=== PATIENT | male | born 1985 | race Hispanic/Latino ===

== ENCOUNTER 2017-08-28 14:43 | Inpatient (IN) | payer BC ==
[2017-08-28 16:12] LABS: #Basophils 0.1 thou/uL (0.0-0.2); #Eosinphils 0.1 thou/uL (0.0-0.7); #Lymphocytes 1.6 thou/uL (1.20-3.40); #Monocytes 0.5 thou/uL (0.11-0.59); #Neutrophils 7.8 thou/uL (1.40-6.50); %Basophils 0.5 % (0.0-1.0); %Eosinophils 0.6 % (0.0-10.0); %Lymphocytes 16.4 % (21.0-51.0); %Monocytes 4.5 % (0.0-10.0); Mean Platelet Volume 8.2 fL (7.4-10.4); Red Blood Cell (RBC) Count 4.94 mill/uL (4.70-6.10)
[2017-08-28 16:36] LABS: Troponin I Less than 0.010 ng/mL (< 0.028)
[2017-08-28 16:42] LABS: ALT (SGPT) 31 U/L (8-55); AST (SGOT) 24 U/L (5-34); Alkaline Phosphatase 77 U/L (40-150); Anion Gap 12 mmol/L (10-20); BUN (Urea Nitrogen) 16 mg/dL (8.9-20.6); Bilirubin, Total 1.9 mg/dL (0.2-1.2); Calc. Creatinine Clearance 0 mL/min (70-130); Calcium 9.4 mg/dL (7.8-10.44); Carbon Dioxide 26 mmol/L (22-29); Chloride 104 mmol/L (98-107); Estimated GFR-MDRD Greater than 90; Globulin 3.5 g/dL (2.4-3.5)
--- NOTE | 2017-08-28 16:48 | CT ---
NONCONTRAST CT HEAD 08/28/17 HISTORY: Near syncope. Mental status change. headache. 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 However, there is also a low dens ity area within the right anterior frontal region adjacent to the region of the calcification of whic h the exact etiology is uncertain. However, this low density area is abnormal in a patient of this ag e. In addition, there is questionable low density area in the left temporal lobe, but this may be rel ated to artifact secondary to the temporal bone as opposed to actual edema in this region. However, g iven the low density area in the right anterior frontal lobe, further evaluation with MRI is recommen ded. No intraparenchymal or extra-axial hemorrhage is seen. there is no mass effect or midline shift. Ventricular system is normal in size, shape and position. Calvarial structures are intact. The visua lized paranasal sinuses and mastoid air cells are clear. IMPRESSION: 1. 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 While these areas could be related to chronic findings and related to prior insult, edema related to more acute insult such as active neurocisticercosis is apossibility. MRI of brain wi th and without IV contrast is recommended for further evaluation. 2. Above findings discussed with Dr. Gillian Sanches in the Emergency Department on 08/28/17 at 1556 hours. POS: [facility]
--- NOTE | 2017-08-28 17:30 | MRI ---
MRI OF BRAIN PERFORMED WITH AND WITHOUT CONTRAST ENHANCEMENT: 08/28/17 HISTORY: Syncope. Mental status change. Headache. Abnormalities noted on CT which were suggestive of healed cisticercosis but there is a questionable l ow attenuation areas associated with calcification in the right frontal lobe region and a questionabl e area within the left temporal. Ventricular and cisternal system is within normal limits. The area of question in the left temporal l obe shows no abnormality. There is an abnormality associated with the right frontal lobe. This shows a small subcentimeter ring enhancing lesion with surrounding edema. No additional lesions are identif ied. The small calcification seen on the CT in the right posterior temporal lobe region does not show any abnormal signal change. On the diffusion weighted sequence, there is no signs that would suggest any infarct. No mass effect or any additional findings. IMPRESSION: Subcentimeter ring enhancing mass in the right frontal lobe. It is probably intraparenchymal, althoug h could be within the sulci in this region. There is definite surrounding edema associated with this. Given the presence of calcifications seen on CT, this still could represent neurocisticercosis altho ugh the features are not entirely typical and a neoplastic process particularly a solitary metastatic lesion or entity such as lymphoma or some type of primary brain tumor could not be definitely exclud ed on the bases of this exam. This will require followup and I would suggest neurosurgical consultati on. Findings discussed with Dr. Sanches. POS: [facility]
--- NOTE | 2017-08-28 17:31 | RAD ---
AP VIEW OF THE CHEST 08/28/17 INDICATION: Near syncope. COMPARISON: None. FINDINGS: The lungs are clear. The cardiomediastinal silhouette is normal. No acute osseous abnormality is evid ent. IMPRESSION: No acute cardiopulmonary abnormality. POS: [facility]
[2017-08-28] MEDS ORDERED: Acetaminophen 325 MG TAB PO PRN ×2 (18:26→19:31)
[2017-08-28] MEDS ORDERED: Acetaminophen 650 MG Suppository PR PRN (18:26)
[2017-08-28] MEDS ORDERED: Ondansetron HCl/PF 4 MG/2 ML Vial IVP PRN (19:31)
[2017-08-28] MEDS ORDERED: Ondansetron ODT 4 MG TAB SL PRN (19:31)
--- NOTE | 2017-08-28 20:26 | HP ---
PRIMARY CARE PROVIDER: None. CHIEF COMPLAINT: Shakiness. HISTORY OF PRESENT ILLNESS: Mr. Adonis Thomsa is a pleasant 32-year-old gentleman who was seen at [facility] on 08/28/2017. He reportedly told the emergency room staff that he had some confusion and shakiness. He also report ed told them that he had headache. However, when I spoke to him, he reports that he had two episodes of shakiness when he was at work. He reports that there were brief. He denies any headache. He de nies having any fevers. He denies any chest pain or shortness of breath. He denies any loss of cons ciousness. REVIEW OF SYSTEMS: The following complete review of systems was negative, unless otherwise mentioned in the HPI or below: Constitutional: Weight loss or gain, sense of well-being, ability to conduct usual activities, exerc ise tolerance. Skin/Breast: Rash, itching, changes in hair growth or loss, nail changes, breast lumps, tenderness, swelling, nipple discharge. Eyes: Vision, double vision, tearing, blind spots, pain. ENT/Mouth: Headaches (location, time of onset, duration, precipitating factors), vertigo, lightheade dness, injury. Vision, double vision, tearing, blind spots, pain, nose bleeding, colds, obstruction, discharge, dental difficulties, gingival bleeding, dentures, neck stiffness, pain, tenderness, masses in thyroid or other areas. Cardiovascular: Precordial pain, substernal distress, palpitations, syncope, dyspnea on exertion, or thopnea, nocturnal paroxysmal dyspnea, edema, cyanosis, hypertension, heart murmurs, varicosities, ph lebitis, claudication. Respiratory: Pain, shortness of breath, wheezing, stridor, cough, hemoptysis, fever or night sweats. Gastrointestinal: Poor appetite, dysphagia, indigestion, abdominal pain, heartburn, eructation, naus ea, vomiting, hematemesis, jaundice, constipation, or diarrhea, abnormal stools (kush-colored, tarry, bloody, greasy, foul-smelling), flatulence, hemorrhoids, recent changes in bowel habits. Genitourinary: Urgency, frequency, dysuria, nocturia, hematuria, polyuria, oliguria, unusual (or kevin nge in) color of urine, stones, hesitancy, change in size of stream, dribbling, acute retention or in continence, libido, potency. Musculoskeletal: Pain, swelling, redness or heat of muscles or joints, limitation, of motion, muscul ar weakness, atrophy, cramps. Neurologic/Psychiatric: Convulsions, paralyzes, tremor, incoordination, paresthesias, difficulties w ith memory of speech, sensory or motor disturbances, or muscular coordination (ataxia, tremor), emoti onal problems, anxiety, depression, previous psychiatric care, unusual perceptions, hallucinations. Allergy/Immunologic: Skin rash, anemia, bleeding tendency, polydipsia, polyuria, intolerance to heat or cold. PAST MEDICAL HISTORY: None. PAST SURGICAL HISTORY: None. SOCIAL HISTORY: Patient denies tobacco use or recreational drug use. He drinks 1 beer a day. FAMILY HISTORY: No family history of malignancy. ALLERGIES: No known drug allergies. CURRENT MEDICATIONS: None. PHYSICAL EXAMINATION: GENERAL: Mr. Adonis Thomas is awake and alert, not in acute distress. VITAL SIGNS: Blood pressure is 122/89, pulse is 97. He is breathing at rate of 18 and saturating 97 % on room air. He is afebrile. EYES: No scleral icterus, no conjunctival pallor. He had pterygium in his left eye. ENT: Moist mucosal membranes, no oropharyngeal erythema or exudates. NECK: Supple, nontender, normal range of movement, trachea is midline. RESPIRATORY: Accessory muscles of breathing are not active. Chest wall movements are symmetric bila terally. LUNGS: Clear to auscultation without wheeze, rhonchi, or crepitations. CARDIOVASCULAR: S1 and S2 are heard, regular. Peripheral pulses palpable. No carotid bruit, no per icardial rub. ABDOMEN: Soft, nontender, bowel sounds are heard, no hepatomegaly, no splenomegaly. NEUROLOGIC: Cranial nerves II-XII intact, deep tendon reflexes 2+, power is 5/5 in all 4 extremities . No focal motor or sensory deficits. Cerebellar Exam: Unremarkable. SKIN: No rashes or subcutaneous nodules. MUSCULOSKELETAL: Power is 5/5 in all 4 extremities. Normal range of movement at all major extremity joints. LYMPHATIC: No cervical lymphadenopathy. PSYCHIATRIC: Normal mood and normal affect, patient is oriented to person, place, and time. DATABASE: Mr. Adonis Thomas labs and investigations were reviewed. He had chest x-ray, which did no t show any pulmonary infiltrates. He also had a CT scan of the brain without contrast, which suggest ed findings likely related to heal cysticercosis in the right cerebral hemisphere with another low-de nsity area in the right anterior frontal lobe with questionable low density in the left temporal lobe . He went on to have an MRI of the brain, which showed subcentimeter ring enhancing mass in the righ t frontal lobe, with definite surrounding edema. The radiologist feels that this could represent jovan rocysticercosis, although the features are not entirely atypical and he could not definitely exclude a neoplastic process particularly a solitary metastatic lesion or entities such as lymphoma. Laborat ory investigation showed unremarkable CBC, elevated total bilirubin of 1.9, but otherwise unremarkabl e comprehensive metabolic profile ASSESSMENT AND PLAN: Mr. Adonis Thomas is a pleasant 32-year-old gentleman who was seen at [facility] on 08/28/2017. His problem list includes: 1. Brain lesions: Suspicious for neurocysticercosis, although the radiologist could not rule out ot her entities. Neurosurgery service has already been consulted. The emergency room physician also sp sterling to Infectious Disease service, who has advised holding off on steroids and anthelmintic agents. We will request cysticercosis serology for now. 2. Seizure risk: The patient is at increased risk for seizures. We will start him on Keppra and st art seizure precautions. 3. Elevated bilirubin: Etiology unclear, isolated hyperbilirubinemia. We will repeat liver functio n test. LEVEL OF RISK: Moderate. LEVEL OF COMPLEXITY: Moderate.
[2017-08-28 21:13] VITALS: BMI 28.0
--- NOTE | 2017-08-28 21:56 | CON ---
This is Mary Mckinney PA-C, with Neurosurgery Service. DATE OF CONSULTATION: 08/28/2017 HISTORY OF PRESENT ILLNESS: The patient is a 32-year-old [place] male who presented to the Em ergency Department per EMS after multiple episodes of headaches where he had abnormal speech patterns . The patient reports he was repeating himself over and over. He was brought to the Emergency Depar tment by his employer for further evaluation. CT head was done, which was notable for some edema in the right frontal lobe. Therefore, patient was evaluated further with brain MRI with and without con trast. Brain MRI was notable for enhancing lesion in the right frontal lobe with surrounding vasogen ic edema. Radiology felt that this may represent neurocysticercosis versus metastatic lesion. The p atient denies any known cancer history, denies history of any source of infectious processes. He rep orts he is otherwise healthy. He is originally from [place], but has lived in the [place] for the last 17 years. He works in construction. Denies any other associated symptoms. PAST MEDICAL HISTORY: The patient is an otherwise healthy. Denies any medical problems. PAST SURGICAL HISTORY: Denies any prior surgery. SOCIAL HISTORY: The patient drinks 1-5 beers daily. Denies smoking history or drug use. The patien t has no known drug allergies. FAMILY HISTORY: Noncontributory. REVIEW OF SYSTEMS: Per HPI. PHYSICAL EXAMINATION: VITAL SIGNS: BP is 119/52, pulse is 94, respiration rate is 18. He is 98% on room air and temperatu re is 99.2. CONSTITUTIONAL: The patient is in no acute distress, comfortable. HEENT: Normocephalic and atraumatic. EYES: PERRLA. Extraocular movements are intact. Sclerae white. ENT: Oral mucosa is pink, intact and moist. NECK: Nontender to palpation. No meningismus or nuchal rigidity. CARDIOVASCULAR: Regular rate and rhythm. LUNGS: Symmetrical chest expansion. Breathing comfortably. MUSCULOSKELETAL: Good muscle tone in bilateral upper and lower extremities. Free active range of mo tion of all extremities. NEUROLOGIC: The patient is A&O x4. No focal weakness is appreciated. He has normal cranial nerve e xam. No limb ataxia. ASSESSMENT: Abnormal MRI with contrast-enhancing lesion over the right frontal lobe, which may repre sent neurocysticercosis versus metastatic lesion. PLAN: The patient will be admitted to the medicine service. We will consult as well as the ALAINA awad. The patient will be evaluated further for possible primary source of the lesion. We will contin ue to follow along and assist in any way this is necessary. I have discussed this plan with Dr. Alondra torres who is in agreement.
[2017-08-29 04:30] LABS: #Basophils 0.1 thou/uL (0.0-0.2); #Eosinphils 0.1 thou/uL (0.0-0.7); #Lymphocytes 2.6 thou/uL (1.20-3.40); #Monocytes 0.5 thou/uL (0.11-0.59); %Basophils 1.2 % (0.0-1.0); %Eosinophils 1.5 % (0.0-10.0); %Lymphocytes 35.9 % (21.0-51.0); %Monocytes 6.3 % (0.0-10.0); Hematocrit 42.9 % (42.0-52.0); Mean Platelet Volume 8.6 fL (7.4-10.4); White Blood Cell (WBC) Count 7.2 thou/uL (4.8-10.8)
[2017-08-29 04:45] LABS: Anion Gap 10 mmol/L (10-20); BUN (Urea Nitrogen) 12 mg/dL (8.9-20.6); Calc. Creatinine Clearance 133 mL/min (70-130); Calcium 9.1 mg/dL (7.8-10.44); Carbon Dioxide 28 mmol/L (22-29); Chloride 105 mmol/L (98-107); Estimated GFR-MDRD Greater than 90
[2017-08-29 07:37] VITALS: BP 111/70; TEMP 98.8
--- NOTE | 2017-08-29 13:48 | PDOC.PN ---
- Subjective Encounter Start Date: 08/29/17 Encounter Start Time: 07:50 Subjective: feels good, is amb in hallway, fully oriented - Objective MAR Reviewed: Yes Vital Signs & Weight: Vital Signs (12 hours) Temp Pulse Resp BP Pulse Ox 08/29/17 08:00 98.8 F 67 20 95 08/29/17 07:36 98.8 F 67 20 111/70 99 08/29/17 04:00 97.4 F L 73 16 97/62 99 Weight Weight 163 lb 2.273 oz I&O: 08/28/17 08/29/17 08/30/17 06:59 06:59 06:59 Intake Total 650 180 Balance 650 180 Result Diagrams: 08/29/17 03:44 08/29/17 03:44 Phys Exam - Physical Examination HEENT: PERRLA, moist MMs Neck: no JVD, supple Respiratory: no wheezing, no rales Cardiovascular: RRR, no significant murmur Gastrointestinal: soft, non-tender, positive bowel sounds Musculoskeletal: no edema, pulses present Neurological: non-focal, moves all 4 limbs Psychiatric: A&O x 3 Dx/Plan (1) Neurocysticercosis Code(s): B69.0 - CYSTICERCOSIS OF CENTRAL NERVOUS SYSTEM Status: Suspected Comment: old calcified lesion in right frontal lobe (2) Headache Code(s): R51 - HEADACHE Status: Resolved Qualifiers: Headache type: unspecified - Plan d/w , the findings are old with calcification -: dc pt home -: no seizure meds * .
--- NOTE | 2017-08-29 22:13 | DIS ---
DATE OF ADMISSION: 08/28/2017 DATE OF DISCHARGE: 08/29/2017 DISCHARGE DISPOSITION: To home. PRIMARY DISCHARGE DIAGNOSES: Cysticercosis in the brain, which is calcified in the right frontal lob e; headache resolved. PROCEDURES DONE DURING HOSPITALIZATION: The patient has had MRI of the brain done, which showed subc entimeter ring enhancing mass in the right frontal lobe. Chest x-ray, no acute cardiopulmonary abnor malities. HIV 1 and 2 nonreactive. DISCHARGE MEDICATIONS: None. ALLERGIES: No known drug allergies. INPATIENT CONSULTS: Dr. Maher for Neurosurgery. BRIEF COURSE DURING HOSPITALIZATION: Patient initially was brought to the ER as he had some confusio n and shaking as well. He was at work with headache. Initial CAT scan done was suspicious for giorgi shital neurocysticercosis in the right frontal lobe. MRI was done, which confirmed the same. He has [place] neurosurgical consultation with Dr. Nika Maher evaluated his MRI and CAT scans. He is of the opinion that this is an old and calcified and is not causing his current issues. Meanwhile, t he patient's headache completely resolved. He is ambulating well and eating well. He will be shortl y discharged home per Dr. Maher's advice. Please see a face to face documentation on [facility] for the day of discharge.
== END 2017-08-29 12:54 | disposition home or self-care (01) | DRG 371 ==
LOC: ERS 14:43 → T4-B 19:04
PROVIDERS: ADMIT Internal Medicine; ATTEND Internal Medicine
PROC: B030ZZZ Magnetic Resonance Imaging (MRI) of Brain (ICD-10-PCS; principal; 2017-08-28)
DX: B69.0 Cysticercosis of central nervous system (principal); G93.6 Cerebral edema; E80.6 Other disorders of bilirubin metabolism
CPT/HCPCS: 36415; 70450; 70553; 71010; 80048; 80053; 82553; 84182; 84484; 85025; 87389; 93005; A4216; J1953